=== PATIENT | male | born 1985 | race Two or more races ===

== ENCOUNTER 2025-04-02 08:23 | Inpatient (IN) | payer OTHER ==
[~2025-04-02] VITALS: Ht 177.8 cm; Wt 90.7 kg
[~2025-04-02 08:23] MED LIST: ADERALL; POTASSIUM CHLO20 MEQ
[2025-04-02 08:48] VITALS: BP 130/80; O2SAT 100
[2025-04-02] MEDS ORDERED: LORAZEPAM2 MG PO (08:49)
[2025-04-02] MEDS ORDERED: PIPERACILLIN/TAZOBACTAM SODIUM 3.375 GM VIAL IV ONE ×2 (09:14→09:15)
[2025-04-02] MEDS ORDERED: FAMOtidine 10 MG/ML (4ML VIAL) IV ONE (09:15)
[2025-04-02] MEDS ORDERED: FAMOTIDINE/PF 20 MG/2 ML VIAL ONE (09:15)
[2025-04-02] MEDS ORDERED: 0.9 % SODIUM CHLORIDE 1,000 ML IV ONE (09:15)
[2025-04-02] MEDS ORDERED: MORPHINE SULFATE 4 MG/ML VIAL IV ONE ×2 (09:15→13:15)
[2025-04-02 10:17] LABS: BASO % 1.4 % (0.1-1.2); EOS # 0.58 (0.04-0.54); EOS % 3.7 % (0.7-7.0); HEMATOCRIT 37.9 % (40.1-51.0); HEMOGLOBIN 12.6 g/dL (13.7-17.5); LYMPH # 0.75 (1.18-3.74); LYMPH % 4.8 % (19.3-53.1); MEAN CORPUSCULAR HEMOGLOBIN 28.3 pg (25.6-32.2); MONO # 1.37 (0.24-0.82); MONO % 8.8 % (4.7-12.5); NEUT # 12.59 (1.56-6.13); PLATELET COUNT 451 K/uL (163-369); RED BLOOD COUNT 4.45 M/uL (4.63-6.08); RED CELL DISTRIBUTION WIDTH 16.9 % (11.6-14.4)
[2025-04-02 10:31] LABS: PARTIAL THROMBOPLASTIN TIME 24.6 SECONDS (22.0-34.0); PROTHROMBIN TIME 10.9 SECONDS (9.0-11.5)
[2025-04-02 10:36] LABS: ALBUMIN 4.1 gm/dL (3.4-5.0); BILIRUBIN TOTAL 0.68 mg/dL (0.3-1.2); BILIRUBIN,CONJUGATED 0.2 mg/dL (0.0-0.2); BILIRUBIN,UNCONJUGATED 0.48 mg/dL (0.0-0.6); CALCIUM 9.6 mg/dL (8.5-10.1); CREATININE SERUM 0.84 mg/dL (0.70-1.30); GFR 102.26; GLOBULINA 3.8 G/DL (2.4-3.5); POTASSIUM 4.42 mEq/L (3.5-5.1); TOTAL PROTEIN 7.9 gm/dL (6.4-8.2)
[2025-04-02] MEDS ORDERED: TAMSULOSIN HCL 0.4 MG CAP PO ONE ×2 (13:00→13:20)
[2025-04-02] MEDS ORDERED: ONDANSETRON HCL 4 MG in 0.9 % SODIUM CHLORIDE 50 ML IV PRN (14:30)
[2025-04-02] MEDS ORDERED: 0.9 % SODIUM CHLORIDE 1,000 ML IV SCH (14:30)
[2025-04-02] MEDS ORDERED: MORPHINE SULFATE 4 MG/ML CARTRIDGE IV PRN (14:45)
[2025-04-02] MEDS ORDERED: KETOROLAC TROMETHAMINE 30 MG VIAL IU PRN (14:45)
[2025-04-02] MEDS ORDERED: PANTOPRAZOLE SODIUM 40 MG/VIAL VIAL IV SCH (21:00)
== END 2025-04-02 19:17 | disposition left against medical advice (07) | DRG 440 ==
LOC: ER 08:23 → MEDI 15:14
PROVIDERS: General Practice; ADMIT Internal Medicine; ATTEND Internal Medicine
PROC: BW21ZZZ Computerized Tomography (CT Scan) of Abdomen and Pelvis (ICD-10-PCS; principal; 2025-04-02)
PROC: BW40ZZZ Ultrasonography of Abdomen (ICD-10-PCS; 2025-04-02)
DX: K85.90 Acute pancreatitis without necrosis or infection, unspecified (principal); Z53.29 Procedure and treatment not carried out because of patient's decision for other reasons; F10.20 Alcohol dependence, uncomplicated